=== PATIENT | female | born 1950 | race Caucasian/White ===

== ENCOUNTER → 2021-07-10 23:23 | Outpatient (CLI) | payer MEDICARE, SELFPAY ==
[2021-07-10 23:36] LABS: Influenza A, PCR Not Detected (NotDetected); Influenza B, PCR Not Detected (NotDetected)
[2021-07-10 23:57] LABS: Coronavirus 19, PCR Detected (NotDetected)
== END ==
PROVIDERS: PCP Family Medicine; Visit Provider Emergency Medicine
DX: Z20.822 Contact with and (suspected) exposure to COVID-19 (principal); U07.1 COVID-19; R06.02 Shortness of breath; R09.89 Other specified symptoms and signs involving the circulatory and respiratory systems
CPT/HCPCS: 99211; C9803; U0003; U0005

== ENCOUNTER 2021-07-12 10:56 | Emergency (ER) | payer MEDICARE, SELFPAY ==
[2021-07-12 10:57] VITALS: BP 158/57; PULSE 83; RESP 20; TEMP 38.3; O2SAT 81; BMI 46.2
[2021-07-12 11:00] VITALS: O2SAT 94
--- NOTE | 2021-07-12 11:06 | XR_ITS ---
PROCEDURE: XR CHEST PORTABLE CLINICAL HISTORY: sob , covid COMPARISON: No exams were available for comparison FINDINGS: Limited exam secondary to patient's body habitus. The study is obtained in a lordotic position. Exam is under penetrated Normal heart size. There are slight increased markings in the left perihilar region. This could be related to the technique and underpenetration versus a patchy area of infiltrate. The remaining lungs are clear. No acute bony abnormalities. IMPRESSION: Limited exam with possible left perihilar infiltrate Dictated by: Jong Schwartz MD 07/12/2021 12:09 Jong Schwartz MD in [facility] 07/12/2021 12:09
[2021-07-12 13:20] VITALS: BP 131/66; PULSE 77; O2SAT 95
[2021-07-12 13:32] LABS: Basophils % 0.3 % (0.1-2.0); Eosinophils % 0.4 % (0.1-12.0); Hematocrit 40.7 % (37.0-47.0); Hemoglobin 12.9 g/dL (12.2-16.2); Lymphocytes # 1.2 K/mm3 (0.7-4.5); Lymphocytes % 25.2 % (10-50); Mean Corpuscular HGB Conc 31.8 g/dL (31.8-35.4); Mean Corpuscular Hemoglobin 29.3 pg (27.0-31.2); Mean Corpuscular Volume 92.1 fl (81-99); Monocytes # 0.2 K/mm3 (0.1-1.0); Neutrophils # 3.2 K/mm3 (1.8-7.8); Platelet Count 130 K/mm3 (142-424); Red Blood Count 4.42 M/mm3 (4.20-5.40); Red Cell Distribution Width 14.4 % (11.5-17.5); White Blood Count 4.6 K/mm3 (4.8-10.8)
[2021-07-12 13:33] LABS: Chloride 99 mmol/L (98-107)
[2021-07-12 13:34] LABS: Potassium 4.3 mmoL/L (3.5-5.1); Sodium 136 mmol/L (136-145)
[2021-07-12 13:36] LABS: Alanine Aminotransferase 22 U/L (12-78); Aspartate Amino Transferase 63 U/L (14-36); Blood Urea Nitrogen 18 mg/dl (7-17); Creatinine Clearance Estimated 47 mL/min (50-200); Estimated Glomerular Filt Rate 49 ml/min (>60); GFR (African American) 60 ML/MIN (>60)
[2021-07-12 13:37] LABS: Albumin Level 3.3 g/dl (3.5-5.0); Albumin/Globulin Ratio 1.1 (1.1-1.8); Alkaline Phosphatase 41 U/L (38-126); Anion Gap 13.3 mEq/L (5-15); Bilirubin,Total 0.4 mg/dl (0.2-1.3); Calcium 7.8 mg/dl (8.4-10.2); Carbon Dioxide 28 mmol/L (22.0-30.0); Globulin 3.1 g/dL (1.3-3.2); Glucose 153 mg/dl (74-100); Total Protein,Serum 6.4 g/dl (6.3-8.2)
--- NOTE | 2021-07-12 14:29 | PC.NURSE ---
LEVOPHED DRIP STARTED DUE TO B/P OF 71/39
[2021-07-12 15:00] VITALS: BP 142/87; PULSE 78; RESP 22
--- NOTE | 2021-07-12 15:03 | SW/DCPLANNER ---
SET UP HOME 02 FOR THIS PATIENT WHO PRESENTED INTO THE ED WITH COVID... A PORTABLE TANK WILL BE DELIVERED TO THE ER ONCE PATIENT IS MEDICALLY STABLE TO DISCHARGE...
--- NOTE | 2021-07-12 15:18 | HMH.EDGENADL ---
ED Disposition Clinical Impression: COVID, Acute respiratory failure with hypoxia Disposition: Home, Self-Care Condition on Discharge: Good Additional Instructions: Home medications as directed. Begin taking aspirin 81 mg p.o. daily. Supplemental O2 as needed for O2 saturation above 90%. Call your PCP tomorrow for follow-up. Referrals: Bryce Gonzalez [Primary Care Provider] - 07/13/21 (Call for appointment) Time of Disposition: 15:25 - Critical Care Critical Care Time: No Attestation: On 07/12/21, the high probability of a clinically significant, sudden or life threatening deterioration of the following system(s) required my full and direct attention, intervention and personal management. The time I documented below is in addition to time spent performing reported procedures but includes the following listed in this critical care notation. Medical Decision Making - Medical Records Medical records reviewed: Yes: I reviewed the patient's medical records. - Andrew Inquiry Pt receiving controlled substance: No Vital Signs: 07/12/21 10:57 07/12/21 13:20 Temperature 101 F H Temperature Source Oral Pulse Rate 77 Pulse Rate [Radial] 83 Respiratory Rate 20 Blood Pressure 131/66 Blood Pressure [Right Arm] 158/57 H Blood Pressure Mean [Right Arm] 90 Blood Pressure Position [Right Arm] Sitting 02 Sat by Pulse Oximetry 81 L 95 Oxygen Delivery Method Room Air Nasal Cannula Oxygen Flow Rate (LPM) 4 - Lab Data Lab results reviewed: Yes: I reviewed the patient's lab results. Lab Results 07/12/21 13:20: WBC 4.6 L, RBC 4.42, Hgb 12.9, Hct 40.7, MCV 92.1, MCH 29.3, MCHC 31.8, RDW 14.4, Plt Count 130 L, MPV 8.0, Neut % (Auto) 69.0, Lymph % (Auto) 25.2, [place] % (Auto) 5.0, Eos % (Auto) 0.4, Baso % (Auto) 0.3, Neut # (Auto) 3.2, Lymph # (Auto) 1.2, [place] # (Auto) 0.2, Eos # (Auto) 0.0, Baso # (Auto) 0.0 07/12/21 13:20: Sodium 136, Potassium 4.3, Chloride 99, Carbon Dioxide 28, Anion Gap 13.3, BUN 18 H, Creatinine 1.10 H, Estimated Creat Clear 47, Estimated GFR 49 L, Est GFR ( Amer) 60, Glucose 153 H, Calcium 7.8 L, Total Bilirubin 0.4, AST 63 H, ALT 22, Alkaline Phosphatase 41, Total Protein 6.4, Albumin 3.3 L, Globulin 3.1, Albumin/Globulin Ratio 1.1 Result diagrams: 07/12/21 13:20 07/12/21 13:20 Orders (Tests/Meds): ED MEDICATIONS Generic Name Dose Route Start Last Admin Trade Name Freq PRN Reason Stop Dose Admin Lactated Ringer's 1,000 mls @ 999 mls/hr 07/12/21 14:45 07/12/21 14:41 Lactated Ringer's 1000 Ml Bag IV 07/12/21 15:45 999 mls/hr .[id number] ARPIT Administration Discontinued Medications Generic Name Dose Route Start Last Admin Trade Name Freq PRN Reason Stop Dose Admin Hydrocodone Bitart/Acetaminophen 1 tab 07/12/21 14:34 07/12/21 14:43 Apap/Hydrocodone 325mg/7.5mg Tab PO 07/12/21 14:35 1 tab ONCE ONE Administration Ondansetron HCl 4 mg 07/12/21 14:33 07/12/21 14:43 Ondansetron 4mg/2ml Vial IV 07/12/21 14:34 4 mg ONCE ONE Administration - Radiology Data #1 Image(s): Chest Image Reviewed: Yes I reviewed the patient's radiology results Preliminary Findings: Abnormal Possible perihilar infiltrate Medical Decision Narrative: 70yo F evaluated with known Covid positive status. Patient is requiring 2 L nasal cannula to maintain appropriate O2 saturation. Patient has multiple complaints about not being comfortable not being able to sleep. Patient's already had lab work completed and it is unremarkable. I discussed with the patient that she could be admitted for acute respiratory failure with hypoxia and Covid however there are no beds in the hospital and she would be staying in the emergency department until someone was discharged. Patient states she did not want to do that and she would rather go home with supplemental O2. Patient is being treated with IV fluids, her home dose pain medication, Zofran at this time. Social work is arranging fo
--- NOTE | 2021-07-12 15:26 | PC.NURSE ---
pt sitting up in wheelchair
--- NOTE | 2021-07-12 15:30 | PC.NURSE ---
CANDY HERE WITH PT'S O2
--- NOTE | 2021-07-12 16:30 | PC.NURSE ---
ATTEMPTING TO ORDER O2 TANK FOR HOME USE
[2021-07-12 16:52] VITALS: BP 156/87; PULSE 88; RESP 22; TEMP 37.2; O2SAT 94
== END 2021-07-12 16:57 | disposition home or self-care (01) ==
PROVIDERS: Emergency Provider Family Medicine; PCP Family Medicine
DX: U07.1 COVID-19 (principal); J96.91 Respiratory failure, unspecified with hypoxia; E11.9 Type 2 diabetes mellitus without complications; I10 Essential (primary) hypertension
CPT/HCPCS: 71045; 80053; 85025; 96365; 99282; J2405

== ENCOUNTER 2025-07-06 10:54 | Outpatient (RCR) | payer MEDICARE, SELFPAY | END 2025-07-12 10:17 | disposition home or self-care (01) | LOC: PT.CARL 10:54 | PROVIDERS: PCP Family Medicine; Visit Provider Family Medicine | DX: R26.89 Other abnormalities of gait and mobility (principal); Z89.512 Acquired absence of left leg below knee | CPT/HCPCS: 97542 ==